=== PATIENT | female | born 1975 | race Caucasian/White ===

== ENCOUNTER 2020-11-18 13:20 | Observation (INO) | payer SELFPAY ==
[2020-11-18] MEDS ORDERED: Bupivacaine 0.25% HCL 30 ML VIAL ONE (14:11)
[2020-11-18] MEDS ORDERED: Lidocaine 1% w/Epinephrine 1:100K 20 ML VIAL ONE (14:11)
[2020-11-18] MEDS ORDERED: Iothalamate Meglumine 60% 50 ML VIAL FS ONE (14:11)
[2020-11-18] MEDS ORDERED: Fentanyl 100 MCG/2 ML VIAL ONE ×3 (15:45→17:49)
[2020-11-18] MEDS ORDERED: Lidocaine 1% PF 5 ML VIAL ONE (15:56)
[2020-11-18] MEDS ORDERED: Succinylcholine 200 MG/10 ml SYRINGE FS ONE (15:56)
[2020-11-18] MEDS ORDERED: Glycopyrrolate 0.2 MG/ML 5 ML SYRINGE ONE (15:56)
[2020-11-18] MEDS ORDERED: Dexamethasone 20 MG/5 ML VIAL ONE (15:56)
[2020-11-18] MEDS ORDERED: PROPOFOL 200 MG/20 ML VIAL ONE (15:56)
[2020-11-18] MEDS ORDERED: Rocuronium Bromide 10 MG/ML (10ML VIAL) ONE (15:56)
[2020-11-18] MEDS ORDERED: Ondansetron PF 4 MG/2 ML Vial ONE (15:56)
[2020-11-18] MEDS ORDERED: hydrALAZINE 20 MG/ML VIAL SLOW IVP PRN (17:16)
[2020-11-18] MEDS ORDERED: Dextrose 50% Abboject 50 ML SYRINGE SLOW IVP PRN (17:16)
[2020-11-18] MEDS ORDERED: Calcium Carbonate 500 MG ChewTAB PO PRN (17:16)
[2020-11-18] MEDS ORDERED: Dextrose 5% in Water 1,000 ML IV PRN (17:16)
[2020-11-18] MEDS ORDERED: Mag-Al 1200 mg/1200 mg/30 ML UDCUP PO PRN (17:16)
[2020-11-18] MEDS ORDERED: Promethazine HCl 25 MG/ML VIAL IM PRN (17:16)
[2020-11-18] MEDS ORDERED: Ondansetron PF 4 MG/2 ML Vial IVP PRN (17:16)
[2020-11-18 20:17] VITALS: BMI 70.3
[2020-11-18] MEDS: Sodium Chloride 0.9% 1,000 ML IV SCH (21:05)
[2020-11-18] MEDS: HYDROcodone/Acetaminophen 10/325 mg Tablet PO PRN (21:14)
[2020-11-18] MEDS: Famotidine/PF 20 mg/2ml Vial SLOW IVP SCH (21:15)
[2020-11-18] MEDS: Famotidine 20 MG TAB PO SCH (21:15)
[2020-11-18] MEDS: Morphine 4 MG/ML VIAL SLOW IVP PRN (22:49)
[2020-11-19] MEDS: Morphine 4 MG/ML VIAL SLOW IVP PRN ×4 (00:58→14:32)
[2020-11-19] MEDS: Sodium Chloride 0.9% 1,000 ML IV SCH (04:18)
[2020-11-19 05:28] LABS: Hemoglobin 13.1 g/dL (12.0-16.0); Mean Corpuscular Hemoglobin 31.4 pg (27.0-31.0); Mean Corpuscular Volume 98.1 fL (78.0-98.0); Mean Platelet Volume 7.9 fL (7.4-10.4); Platelet Count 241 thou/uL (130-400); RBC Distribution Width 12.1 % (11.5-14.5); Red Blood Cell (RBC) Count 4.15 mill/uL (4.20-5.40); White Blood Cell (WBC) Count 21.6 thou/uL (4.8-10.8)
[2020-11-19 05:42] LABS: Anion Gap 13 mmol/L (10-20); BUN (Urea Nitrogen) 14 mg/dL (7.0-18.7); Calc. Creatinine Clearance 216 mL/min (70-130); Calcium 8.8 mg/dL (7.8-10.44); Carbon Dioxide 25 mmol/L (22-29); Chloride 108 mmol/L (98-107); Glucose 124 mg/dL (70-105); Potassium 4.5 mmol/L (3.5-5.1); Sodium 141 mmol/L (136-145)
[2020-11-19 05:56] LABS: Band 13 % (5-11); Lymphocytes 12 % (21-51); MDiff Complete? YES; Monocytes 15 % (0-10); Neutrophil 60 % (42-75); Platelet Morphology Comment Appears Adequate; RBC Morphology Normal
[2020-11-19] MEDS: Famotidine 20 MG TAB PO SCH (09:48)
[2020-11-19] MEDS: HYDROcodone/Acetaminophen 10/325 mg Tablet PO PRN (12:21)
[2020-11-19 12:32] VITALS: BP 111/73; TEMP 97.9
[2020-11-19] MEDS: Famotidine/PF 20 mg/2ml Vial SLOW IVP SCH (15:27)
== END 2020-11-19 15:51 | disposition home or self-care (01) ==
LOC: SDC 13:20 → SURG A 17:18
PROVIDERS: ADMIT Surgery; ATTEND Surgery
PROC: 0FT40ZZ Resection of Gallbladder, Open Approach (ICD-10-PCS; principal; 2020-11-18)
PROC: BF031ZZ Plain Radiography of Gallbladder and Bile Ducts using Low Osmolar Contrast (ICD-10-PCS; 2020-11-18)
DX: K80.12 Calculus of gallbladder with acute and chronic cholecystitis without obstruction (principal); D35.01 Benign neoplasm of right adrenal gland; N21.0 Calculus in bladder; N13.2 Hydronephrosis with renal and ureteral calculous obstruction; F17.200 Nicotine dependence, unspecified, uncomplicated; E03.9 Hypothyroidism, unspecified; E66.9 Obesity, unspecified; Z68.44 Body mass index [BMI] 60.0-69.9, adult; Z96.0 Presence of urogenital implants
CPT/HCPCS: 36415; 47532; 74176; 80048; 85025; 88304; 96374; 96376; G0378; J1100; J2270; J2405; J2704; J3010; J7050; Q9961; S0020